=== PATIENT | male | born 1945 | race Caucasian/White ===

== ENCOUNTER → 2022-01-22 07:51 | Outpatient (CLI) | payer MEDICARE, OTHER, SELFPAY ==
--- NOTE | ~2022-01-22 | US_ITS ---
EXAMINATION: US aorta [facility] [place] [facility] DATE: 01/22/2022 08:22 INDICATION: Abdominal aortic aneurysm screening TECHNIQUE: Grayscale, color Doppler, and pulsed Doppler images of the aorta and common iliac arteries were obtained. COMPARISON: None. FINDINGS: The proximal aorta measures 3.0 cm. The mid aorta measures 2.6 cm. The mid to distal aorta measures 3 .0 cm. The distal aorta measures 2.7 cm. The right common iliac artery measures 1.5 cm. The left comm on iliac artery measures 1.3 cm. IMPRESSION: 1. Normal caliber abdominal aorta measuring up to 3.0 cm in maximal diameter. Reviewed, dictated and finalized at location D.
== END ==
PROVIDERS: PCP Student in an Organized Health Care Education/Training Program; Visit Provider Student in an Organized Health Care Education/Training Program
DX: Z13.6 Encounter for screening for cardiovascular disorders (principal)
CPT/HCPCS: 76706

== ENCOUNTER 2023-10-22 08:41 | Outpatient (CLI) | payer MEDICARE, OTHER, SELFPAY ==
--- NOTE | ~2023-10-22 | NM_ITS ---
NM bone scan whole body DATE: 10/22/2023 14:24 INDICATION: Prostate cancer TECHNIQUE: Delayed whole body images of the skeleton were obtained after intravenous injection of 23. 6 mCi 99m technetium MDP COMPARISON: None FINDINGS: There is focal increased uptake in linear alignment at the anterior aspect of the left four th, fifth and sixth ribs, consistent with trauma. There is increased uptake at both acromioclavicular and knee joints, consistent with degenerative yousif nge. There is no scintigraphic evidence of skeletal metastatic disease. Bilateral renal activity is noted. IMPRESSION: No evidence of skeletal metastatic disease Reviewed, dictated and finalized at Location A. Reviewed, dictated and finalized at location B.
== END 2023-10-22 08:42 | disposition home or self-care (01) ==
PROVIDERS: PCP Student in an Organized Health Care Education/Training Program; Visit Provider Urology
DX: C61 Malignant neoplasm of prostate (principal)
CPT/HCPCS: 78306; A9503

== ENCOUNTER 2023-10-23 10:33 | Outpatient (CLI) | payer MEDICARE, OTHER, SELFPAY ==
--- NOTE | ~2023-10-23 | CT_ITS ---
CT of the Abdomen and Pelvis: Indication: Prostate cancer Technique: 2.5 mm axial scans were obtained through the abdomen and pelvis following intravenous adm inistration of 100 cc of Omnipaque 350. Dose reduction technique was used on this scan by utilizing a utomated exposure control and iterative reconstruction technique. The dose-length product (DLP) was 1 475.63 mGy-cm. Findings: Scans through the lung bases are unremarkable. The liver, spleen, pancreas, gallbladder, right adrenal and, and kidneys are within normal limits. 2. 1 cm left renal mass present, stable as compared to prior lumbar spine CT dated 10/31/2014. There are atherosclerotic calcifications of the aorta. No lymphadenopathy. No bowel obstruction or bowel wall thickening. There is no evidence to suggest acute appendicitis. Images through the pelvis were performed. Urinary bladder unremarkable. Prostate gland enlarged. Ther e are compression fractures of T12 and L4. No sclerotic osseous lesion evident. Impression: No evidence of metastatic disease. Enlarged prostate gland. 2.1 cm left adrenal nodule stable since 2014, therefore benign. Compression fractures of T12 and L4. Reviewed, dictated and finalized at location . Impression: No evidence of metastatic disease. Enlarged prostate gland. 2.1 cm left adrenal nodule stable since 2014, therefore benign. Compression fractures of T12 and L4.
[2023-10-23 11:03] LABS: Estimated Glomerular Filt Rate > 60
== END 2023-10-23 10:34 | disposition home or self-care (01) ==
LOC: ANHIMG 10:38
PROVIDERS: PCP Student in an Organized Health Care Education/Training Program; Visit Provider Urology
DX: C61 Malignant neoplasm of prostate (principal); N40.0 Benign prostatic hyperplasia without lower urinary tract symptoms; E27.8 Other specified disorders of adrenal gland; M48.54XA Collapsed vertebra, not elsewhere classified, thoracic region, initial encounter for fracture
CPT/HCPCS: 74177; Q9967

== ENCOUNTER 2023-12-30 13:26 | Outpatient (CLI) | payer MEDICARE, OTHER, SELFPAY ==
--- NOTE | ~2023-12-30 | MR_ITS ---
EXAMINATION: MR pelvis wo/w con DATE: 12/30/2023 14:44 INDICATION: Prostate cancer. TECHNIQUE: Magnetic resonance imaging (MRI) of the pelvis was performed without and with 20 mL MultiH ance intravenous contrast. COMPARISON: CT abdomen and pelvis 10/23/2023 FINDINGS: The prostate is moderately enlarged. There are no pathologically enlarged lymph nodes. There is no fr ee intraperitoneal fluid. There is severe lumbar spondylosis. There is a 2.5 x 1.2 cm ganglion cyst a djacent to left hip joint. IMPRESSION: 1. Moderately enlarged prostate. No evidence of metastatic disease. Reviewed, dictated and finalized at location A.
== END 2023-12-30 13:27 | disposition home or self-care (01) ==
PROVIDERS: PCP Student in an Organized Health Care Education/Training Program; Visit Provider Radiology Radiation Oncology
DX: C61 Malignant neoplasm of prostate (principal); N40.0 Benign prostatic hyperplasia without lower urinary tract symptoms
CPT/HCPCS: 72197; A9577

== ENCOUNTER 2024-01-01 13:35 | Outpatient (CLI) | payer MEDICARE, OTHER, SELFPAY ==
--- NOTE | ~2024-01-01 | PE_ITS ---
EXAMINATION: PET_PETPSMAST_PT DATE: 01/01/2024 15:33 INDICATION: Malignant neoplasm of prostate. TECHNIQUE: 5.294 mCi of piflufolastat F-18 was administered intravenously. Low dose computed tomograp hy (CT) images were acquired from the base of the brain to the proximal thighs for attenuation correc tion and anatomic localization. Automated exposure control was employed. Dose-length product (DLP) wa s 1290 mGy-cm. Positron emission tomography (PET) images were acquired in the same distribution. COMPARISON: CT abdomen and pelvis 10/23/2023, pelvis MRI 12/30/2023, lumbar spine CT 10/31/2014 FINDINGS: Head/neck: There are likely changes of ocular lens replacement surgeries. There are no pathologically enlarged lymph nodes. Chest: There is mild emphysema. There is a 1.4 cm part solid nodule in right upper lobe. No pleural e ffusion. Cardiomegaly is noted. There are coronary artery calcifications. No pericardial effusion. 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 Abdomen/pelvis/proximal thighs: Calcifications in the liver and spleen are consistent with old granul omatous disease. The gallbladder, pancreas, and right adrenal gland are normal. There is a 2.0 cm mas s in left adrenal gland measuring soft tissue attenuation, stable from 10/31/2014, likely an adenoma. The kidneys are normal. Aortic atherosclerosis is noted. The prostate is moderately enlarged. There i s focal increased activity in the prostate on the left with maximum SUV of 8.8. There are brachythera py seeds in the prostate. There are no dilated loops of bowel. The appendix is normal. There are no p athologically enlarged lymph nodes. There is no free intraperitoneal fluid. There is no osseous metas tatic disease. IMPRESSION: 1. Moderately enlarged prostate with increased activity on the left, consistent with primary malignan cy. No evidence of metastatic disease. 2. 1.4 cm part-solid nodule in right lung upper lobe, probably benign. Noncontrast low-dose chest CT is recommended in 6 months. Reviewed, dictated and finalized at location A. IMPRESSION: 1. Moderately enlarged prostate with increased activity on the left, consistent with primary malignancy. No evidence of metastatic disease. 2. 1.4 cm part-solid nodule in right lung upper lobe, probably benign. Noncontr ast low-dose chest CT is recommended in 6 months.
== END 2024-01-01 13:36 | disposition home or self-care (01) ==
LOC: ANHIMG 13:37
PROVIDERS: PCP Student in an Organized Health Care Education/Training Program; Visit Provider Radiology Radiation Oncology
DX: C61 Malignant neoplasm of prostate (principal); R91.1 Solitary pulmonary nodule
CPT/HCPCS: 78815; A9596

== ENCOUNTER 2024-11-04 10:00 | Outpatient (RCR) | payer MEDICARE, OTHER, SELFPAY ==
[2024-09-03 09:07] VITALS: PULSE 74
== END 2024-11-08 10:24 | disposition home or self-care (01) ==
LOC: ANHCPREHAB 10:00
PROVIDERS: PCP Student in an Organized Health Care Education/Training Program
DX: Z95.2 Presence of prosthetic heart valve (principal)
CPT/HCPCS: 93798